=== PATIENT | female | born 1935 | race Caucasian/White ===

== ENCOUNTER → 2018-01-28 | Outpatient (CLI) | payer MEDICARE, BC, OTHER ==
[~2018-01-28] MED LIST: GADOBENATE DIMEGLUMINE 1 ML IV ONE; SODIUM CHLORIDE 0.9% 50ML 50 ML ONE
[2018-01-28 15:28] LABS: BLOOD UREA NITROGEN 9 mg/dL (7-26); BUN/CREATININE RATIO 12 (6-25); CREATININE, SERUM 0.77 mg/dL (0.57-1.11); EST GLOMERULAR FILTRATION RATE > 60 ML/MIN (60-)
--- NOTE | 2018-01-29 09:40 | Diagnostic Imaging Report ---
EXAMINATION: MR angiogram of the without and with contrast CLINICAL HISTORY: Carotid artery stenoses. Hypertension. Stroke. COMPARISON: None available TECHNIQUE: A 2D/3-D [id number] TOF angiographic sequences without and with respectively were performed on the neck . The source images and inbound sales representative projections of the MIP images through 180 degrees of rotation of the neck were reviewed Intravenous contrast: 14 mL of MultiHance. FINDINGS: If present, stenosis of the carotid bulbs is measured based on NASCET criteria i.e area of maximum stenosis compared to the cervical ICA distal to the bulb. Origin of the vessels: Mild stenosis of the origin of the right vertebral artery, otherwise patent. Incidentally noted, origin off the right brachiocephalic artery and left common carotid artery as a normal variation of the anatomy. 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 Right Carotid Artery: The common carotid, internal and external carotid arteries at the level of the neck are normal in caliber, and patent, no evidence of stenoses. Left Carotid Artery: The common carotid, internal and external carotid arteries at the level of the neck are normal in caliber, and patent, no evidence of stenoses. Vertebral Arteries: Both are normal in morphology and caliber. Both are codominant. No significant stenosis is seen. IMPRESSION: Within normal limits MRI angiogram of the neck, particularly no major vessel occlusion or hemodynamically significant stenosis of the carotid or vertebral arteries. Signed by: Dr. Yojana De La Garza M.D. on 01/29/2018 9:36 AM
== END ==
LOC: MRI 14:19
PROVIDERS: ATTEND Internal Medicine
DX: I65.29 Occlusion and stenosis of unspecified carotid artery (principal); I10 Essential (primary) hypertension; Z86.73 Personal history of transient ischemic attack (TIA), and cerebral infarction without residual deficits
CPT/HCPCS: 36415; 70549; 82565; 84520